=== PATIENT | male | born 1990 | race Caucasian/White ===

== ENCOUNTER 2016-12-03 17:37 | Emergency (ER) | payer SELFPAY ==
[~2016-12-03] VITALS: Ht 172.7 cm; Wt 91.4 kg
[2016-12-03 17:40] VITALS: BP 156/86
--- NOTE | 2016-12-03 17:50 | NUR ---
PATIENT TO BED 12 AT THIS TIME.
--- NOTE | 2016-12-03 17:57 | NUR ---
26 M BIB SELF WITH C/O EPISTAXIS BOTH NARES S/P MECHANICAL FALL X TODAY;DENIES LOC; BLEEDING CONTROLLED; NO DEVIATION; SKIN IS PINK/WARM/DRY; AOX4 WITH EVEN AND STEADY GAIT; RR ARE EVEN AND UNLABORED; VSS; PATIENT POSITIONED FOR COMFORT; BED DOWN. ER MD ESTEVES EXAMINING PT. ALL NEEDS MET.
[2016-12-03 18:35] VITALS: BP 145/80
--- NOTE | 2016-12-03 18:35 | NUR ---
Patient discharged with v/s stable. Written and verbal after care instructions given and explained. Patient alert, oriented and verbalized understanding of instructions. Ambulatory with steady gait. All questions addressed prior to discharge. ID band removed. Patient advised to follow up with PMD. Rx of Afrin given. Patient educated on indication of medication including possible reaction and side effects. Opportunity to ask questions provided and answered.
== END 2016-12-03 18:35 | disposition home or self-care (01) ==
LOC: MED 17:37
DX: R04.0 Epistaxis (principal); F14.90 Cocaine use, unspecified, uncomplicated
CPT/HCPCS: 99282

== ENCOUNTER 2017-01-13 15:40 | Emergency (ER) | payer SELFPAY ==
[~2017-01-13] VITALS: Ht 172.7 cm; Wt 92.1 kg
[2017-01-13 15:52] VITALS: BP 123/87
--- NOTE | 2017-01-13 17:00 | NUR ---
Patient to bed 08.
--- NOTE | 2017-01-13 17:15 | NUR ---
26 M BIB SELF WITH C/O 10/ "PRESSURE" NON RADIATING CONSTANT RT TESTICULAR PAIN WITH SWELLING X 1 DAY; PT DENIES DYSURIA, PENILE DISCHARGE, RECENT FEVERS OR TRAUMA/INJURY; PT IS AOX4, RR ARE EVEN AND UNLABORED; PT POSITION TO COMFORT, BED DOWN. ER MD AWARE OF PT STATUS. NAD. ALL NEEDS MET AT THIS TIME.
--- NOTE | 2017-01-13 18:03 | NUR ---
DR. PIZANO EVALUATING PT AT BEDSIDE.
--- NOTE | 2017-01-13 18:04 | NUR ---
Dr. Richmond evaluating patient at bedside.
[2017-01-13] MEDS ORDERED: KETOROLAC 60 MG/2 ML VIAL IM ONE (18:10)
[2017-01-13] MEDS ORDERED: AZITHROMYCIN 250 MG TAB PO ONE (18:25)
[2017-01-13] MEDS ORDERED: cefTRIAXone 250 MG in LIDOCAINE 1% ***ER ONLY *** 0.9 ML IM ONE (18:25)
[2017-01-13 19:04] VITALS: BP 106/74
--- NOTE | 2017-01-13 19:04 | NUR ---
Patient discharged with v/s stable. Written and verbal after care instructions given and explained. Patient alert, oriented and verbalized understanding of instructions. Ambulatory with steady gait. All questions addressed prior to discharge. ID band removed. Patient advised to follow up with PMD. Rx of Motrin and NOrco given. Patient educated on indication of medication including possible reaction and side effects. Opportunity to ask questions provided and answered.
[2017-01-15 09:24] LABS: CHLAMYDIA TRACHOMATIS AMP DNA Negative (Negative)
--- NOTE | 2017-01-17 14:44 | NUR ---
ADDENDUM: LAB.RESULTS SHOWED POSITIVE N.GONORRHOEAE. REVIEWED BY DR. HOFFMAN. PRESCRIPTION OF DOXYCYCLINE 100MG. 1 TAB. PO TID #20. ATTEMPTED TO CALL PATIENT [phone]. NOT ACCEPTING ANY CALLS.
--- NOTE | 2017-01-17 14:56 | NUR ---
GIVEN REPORT COPY TO [facility],FROM INFECTION CONTROL TO REPORT TO [facility]
--- NOTE | 2017-01-17 15:10 | NUR ---
ADDENDUM: ATTEMPTED TO CALL PATIENT AGAIN,STILL NOT RECEIVING CALLS. [facility]/DR. HOFFMAN MADE AWARE
== END 2017-01-13 19:04 | disposition home or self-care (01) ==
LOC: MED 15:40
DX: N50.811 Right testicular pain (principal); F17.200 Nicotine dependence, unspecified, uncomplicated
CPT/HCPCS: 36415; 76870; 81002; 87491; 96372; 99285; J0696; J1885; J2001

== ENCOUNTER 2018-10-24 23:31 | Emergency (ER) | payer MEDICAID, OTHER ==
[~2018-10-24] VITALS: Ht 170.2 cm; Wt 81.6 kg
[2018-10-24 23:49] VITALS: BP 154/91
--- NOTE | 2018-10-24 23:49 | NUR ---
PT AMBULATED TO LOBBY.
--- NOTE | 2018-10-25 00:48 | NUR ---
PT TAKEN TO BED 6
--- NOTE | 2018-10-25 00:48 | NUR ---
28 Y/O MALE PRESENTS TO ED WITH C/O STEPPING ON X2 NAILS. TWO, 3MM PUNCTURE WOUNDS TO BOTTOM OF RIGHT FOOT. BLEEDING CONTROLLED. LAST TEATANUS SHOT 2017. PT STATES NO PAST MEDICAL HX. 10/24 PAIN. ER MD AWARE. POSITIONED IN BED FOR COMFROT. CONTINUE TO MONITOR.
--- NOTE | 2018-10-25 02:08 | NUR ---
ERMD AT BEDSIDE
--- NOTE | 2018-10-25 02:11 | NUR ---
EMT AT BEDSIDE CLEANSING RIGHT FOOT
[2018-10-25] MEDS: KETOROLAC 60 MG/2 ML VIAL IM ONE (02:16)
--- NOTE | 2018-10-25 02:16 | NUR ---
EMT AT BEDSIDE WRAPPING RIGHT FOOT WITH NONADHESIVE DRESSING AND GAUZE
--- NOTE | 2018-10-25 02:40 | NUR ---
Patient discharged with v/s stable. Written and verbal after care instructions given and explained. Patient alert, oriented and verbalized understanding of instructions. Pt instructed to keep area clean and dry. Ambulatory with steady gait. All questions addressed prior to discharge. ID band removed. Rx of MOTRIN was given. Patient educated on indication of medication including possible reaction and side effects. Opportunity to ask questions provided and answered.
[2018-10-25 02:42] VITALS: BP 154/91
== END 2018-10-25 02:40 | disposition home or self-care (01) ==
LOC: MED 23:31
DX: S91.331A Puncture wound without foreign body, right foot, initial encounter (principal); W45.0XXA Nail entering through skin, initial encounter; Y92.89 Other specified places as the place of occurrence of the external cause; Y93.89 Activity, other specified; Y99.8 Other external cause status
CPT/HCPCS: 96372; 99283; J1885

== ENCOUNTER 2018-11-18 15:49 | Emergency (ER) | payer OTHER ==
[~2018-11-18] VITALS: Ht 175.3 cm; Wt 99.0 kg
[2018-11-18 15:58] VITALS: BP 154/97
[2018-11-18 16:54] LABS: BASOPHILS # (AUTO) 0.1 K/uL (0.00-0.22); BASOPHILS % (AUTO) 0.6 % (0.0-2.0); EOSINOPHILS # (AUTO) 0.1 K/uL (0-0.4); EOSINOPHILS % (AUTO) 1.2 % (0.0-4.0); HEMATOCRIT 47.7 % (36-52); HEMOGLOBIN 16.2 g/dL (12.0-18.0); LYMPHOCYTES # (AUTO) 2.1 K/uL (2.0-11.5); LYMPHOCYTES % (AUTO) 25.3 % (20.5-51.1); MEAN CORPUSCULAR HEMOGLOBIN 30 pg (27-31); MEAN CORPUSCULAR HGB CONC 34 g/dL (33-37); MEAN CORPUSCULAR VOLUME 89.5 fL (80-94); MONOCYTES # (AUTO) 0.8 K/uL (0.8-1.0); MONOCYTES % (AUTO) 10.1 % (1.7-9.3); NEUTROPHILS # (AUTO) 5.1 K/uL (1.8-7.7); NEUTROPHILS % (AUTO) 62.8 % (42.2-75.2); PLATELET COUNT (AUTO) 286 K/uL (140-450); RED BLOOD CELL COUNT(AUTO) 5.33 MIL/uL (4.20-6.10); RED CELL DISTRIBUTION WIDTH 13.3 % (11.6-13.7); WHITE BLOOD COUNT (AUTO) 8.2 K/uL (4.8-10.8)
[2018-11-18 16:56] LABS: APPEARANCE,URINE CLEAR (CLEAR); BILIRUBIN,URINE NEGATIVE (NEGATIVE); BLOOD, URINE NEGATIVE (NEGATIVE); LEUKOCYTE ESTERASE ,URINE NEGATIVE (NEGATIVE); NITRITE, URINE NEGATIVE (NEGATIVE); PH,URINE 5.5 (5.0-9.0); UGLUCOSE NEGATIVE (NEGATIVE)
[2018-11-18 17:01] LABS: ANION GAP 12.6 (8-16); CARBON DIOXIDE 28.1 mmol/L (21-32); CHLORIDE 104 mmol/L (98-107); CREATININE 1.2 mg/dL (0.7-1.3); GFR ARICAN-AMERICAN 92 mL/min (>90); GLUCOSE 91 mg/dL (74-106); POTASSIUM 3.7 mmol/L (3.5-5.1); SODIUM SERUM 141 mmol/L (136-145); UREA NITROGEN, BLOOD 19 mg/dL (7-18)
[2018-11-18 17:03] LABS: BARBITURATE, URINE NEG. ng/ml (NEG <=200); BENZODIAZEPINE, URINE NEG. ng/mL (NEG <=200); CANNABINOID, URINE POS. ng/mL (NEG <=50); COCAINE, URINE NEG. ng/mL (NEG <=300); OPIATE, URINE NEG. ng/mL (NEG <=2000); PHENCYCLIDINE SCREEN,URINE NEG. ng/mL (NEG <=25)
[2018-11-18 17:15] LABS: COLOR,URINE AMBER (YELLOW)
[2018-11-18 17:15] LABS: ALBUMIN 4.2 g/dL (3.4-5.0); ASPARTATE AMINOTRANSFERASE 45 U/L (15-37); SALICYLATE < 2.8 mg/dL (2.8-20.0); THYROID STIMULATING HORMONE 2.02 uIU/mL (0.34-3.74)
[2018-11-18 17:45] VITALS: BP 140/67
== END 2018-11-18 17:44 | disposition home or self-care (01) ==
LOC: MED 15:49
DX: Z02.89 Encounter for other administrative examinations (principal); F12.10 Cannabis abuse, uncomplicated; F15.10 Other stimulant abuse, uncomplicated; F90.9 Attention-deficit hyperactivity disorder, unspecified type
CPT/HCPCS: 36415; 80053; 80305; 81003; 84439; 84443; 85025; 99283; G0480; G0482

== ENCOUNTER 2018-11-21 11:34 | Emergency (ER) | payer OTHER ==
[~2018-11-21] VITALS: Ht 172.7 cm; Wt 76.7 kg
--- NOTE | 2018-11-21 11:39 | NUR ---
Kath edwards in ED - 11/21/18 at 1143 by MMTHEM Patient ambulated to bed 7. RN evaluating patient at bedside.
[2018-11-21 11:41] VITALS: BP 140/92
--- NOTE | 2018-11-21 11:48 | NUR ---
pt coming in for medical clearance paperwork to be filled out, no symptoms or complaints at this time.
[2018-11-21 13:01] VITALS: BP 140/92
--- NOTE | 2018-11-21 13:01 | NUR ---
Patient discharged with v/s stable. Written and verbal after care instructions given and explained. Patient verbalized understanding. Ambulatory with steady gait. All questions addressed prior to discharge. Advised to follow up with PMD.
== END 2018-11-21 13:01 | disposition home or self-care (01) ==
LOC: MED 11:34
DX: F15.10 Other stimulant abuse, uncomplicated (principal); F14.10 Cocaine abuse, uncomplicated; F10.10 Alcohol abuse, uncomplicated; F17.200 Nicotine dependence, unspecified, uncomplicated
CPT/HCPCS: 99281

== ENCOUNTER 2019-07-20 23:59 | Emergency (ER) | payer OTHER ==
[~2019-07-20] VITALS: Ht 175.3 cm; Wt 102.3 kg
[2019-07-21 00:05] VITALS: BP 133/97
[2019-07-21 00:40] VITALS: BP 133/97
== END 2019-07-21 00:40 | disposition home or self-care (01) ==
LOC: MED 23:59
DX: L02.415 Cutaneous abscess of right lower limb (principal); F15.10 Other stimulant abuse, uncomplicated; F12.90 Cannabis use, unspecified, uncomplicated
CPT/HCPCS: 99283

== ENCOUNTER 2020-06-15 19:39 | Emergency (ER) | payer OTHER ==
[~2020-06-15] VITALS: Ht 172.7 cm; Wt 98.4 kg
[2020-06-15 19:43] VITALS: BP 135/92
--- NOTE | 2020-06-15 19:45 | NUR ---
TO LOBBY A/W BED AMBULATORY
[2020-06-15] MEDS ORDERED: NACL 0.9% 1,000 ML IV ONE (19:55)
[2020-06-15] MEDS ORDERED: KETOROLAC 30 MG/ML VIAL IVP ONE (19:55)
[2020-06-15] MEDS ORDERED: ONDANSETRON 4 MG/2 ML VIAL IVP ONE (19:55)
--- NOTE | 2020-06-15 19:58 | NUR ---
PT TAKEN TO BED 6
--- NOTE | 2020-06-15 20:02 | NUR ---
29 Y/O MALE PRESENTED TO ED C/O LEFT FLANK PAIN X 1 WEEK . PT DESCRIBES PAIN SHARP AND CONSTANT W/ NO RELIEF. PT DENIES TAKING ANY MEDICATION FOR PAIN. PT DENIES ANY DYSURIA , HEMATURIA , FEVER, BODY ACHES OR CHILLS. PT C/O OF LT FLANK TENDERNESS UPON PALPATION BUT DENIES ANY ABDOMINAL PAIN. PT RESTING IN BED, LOCKED AND IN LOWEST POSITION, HOB ELEVATED, SIDE RAIL X 2 FOR PT SAFETY. VSS. NO ACUTE DISTRESS NOTED. PMH: DENIES NKA
--- NOTE | 2020-06-15 20:02 | NUR ---
Dr. Richmond examining patient.
--- NOTE | 2020-06-15 20:20 | NUR ---
PT C/O OF BURNING SENSATION IN RT FOREARM IV - PER PT REQUEST INSERTED NEW IV IN LEFT AC 20G. PT STATES NO BURNING OR PAIN NOTED IN THIS IV SITE.
[2020-06-15 20:23] LABS: BASOPHILS % (AUTO) 0.2 % (0.0-2.0); EOSINOPHILS # (AUTO) 0.2 K/uL (0-0.4); HEMOGLOBIN 17.6 g/dL (12.0-18.0); WHITE BLOOD COUNT (AUTO) 12.8 K/uL (4.8-10.8)
[2020-06-15 20:25] LABS: APPEARANCE,URINE CLEAR (CLEAR); BILIRUBIN,URINE 1+ (NEGATIVE); BLOOD, URINE 3+ (NEGATIVE); COLOR,URINE YELLOW (YELLOW); LEUKOCYTE ESTERASE ,URINE NEGATIVE (NEGATIVE); NITRITE, URINE NEGATIVE (NEGATIVE); PH,URINE 5.5 (5.0-9.0); UGLUCOSE NEGATIVE (NEGATIVE)
--- NOTE | 2020-06-15 20:25 | NUR ---
PT TAKEN TO CT VIA OSMEL
[2020-06-15 20:30] LABS: EOSINOPHILS % (AUTO) 1.6 % (0.0-4.0); HEMATOCRIT 51.7 % (36-52); LYMPHOCYTES # (AUTO) 1.1 K/uL (2.0-11.5); LYMPHOCYTES % (AUTO) 8.5 % (20.5-51.1); MEAN CORPUSCULAR HEMOGLOBIN 31 pg (27-31); MEAN CORPUSCULAR HGB CONC 34 g/dL (33-37); MEAN CORPUSCULAR VOLUME 90.3 fL (80-94); MONOCYTES # (AUTO) 0.7 K/uL (0.8-1.0); MONOCYTES % (AUTO) 5.8 % (1.7-9.3); NEUTROPHILS # (AUTO) 10.7 K/uL (1.8-7.7); NEUTROPHILS % (AUTO) 83.9 % (42.2-75.2); PLATELET COUNT (AUTO) 292 K/uL (140-450); RED BLOOD CELL COUNT(AUTO) 5.73 MIL/uL (4.20-6.10); RED CELL DISTRIBUTION WIDTH 13.5 % (11.6-13.7)
[2020-06-15 20:39] LABS: RBC,URINE TOO NUMEROUS TO COUN /HPF (0-5); WBC,URINE NONE SEEN /HPF (0-5)
[2020-06-15 20:40] LABS: CALCIUM OXALATE CRYSTALS,UR 0-10 /HPF (None Seen)
[2020-06-15 20:42] LABS: ALBUMIN 3.7 g/dL (3.4-5.0); ANION GAP 9.9 (8-16); CREATININE 1.2 mg/dL (0.6-1.3); POTASSIUM 3.9 mmol/L (3.5-5.1); TOTAL BILIRUBIN 0.7 mg/dL (0.0-1.0)
[2020-06-15] MEDS ORDERED: TAMS0.4C96 PO (20:58)
[2020-06-15] MEDS ORDERED: ACET-8386 PO (20:58)
[2020-06-15] MEDS ORDERED: IBUP-2213 PO (20:58)
[2020-06-15] MEDS ORDERED: ONDA8TAB87 PO (20:58)
--- NOTE | 2020-06-15 21:15 | NUR ---
20G IV IN RT FOREARM removed, catheter intact and site benign. Applied folded 4x4 gauze and tape to stop bleeding. 20G IV IN LEFT AC removed, catheter intact and site benign. Applied folded 4x4 gauze and tape to stop bleeding.
[2020-06-15 21:17] VITALS: BP 130/89
--- NOTE | 2020-06-15 21:17 | NUR ---
Patient discharged with v/s stable. Written and verbal after care instructions given and explained. Patient alert, oriented and verbalized understanding of instructions. Ambulatory with steady gait. All questions addressed prior to discharge. ID band removed. Patient advised to follow up with PMD. Rx of flomax, ibuprofen, norco and zofran given. Patient educated on indication of medication including possible reaction and side effects. Opportunity to ask questions provided and answered.
== END 2020-06-15 21:17 | disposition home or self-care (01) ==
LOC: MED 19:39
DX: N20.0 Calculus of kidney (principal); M54.9 Dorsalgia, unspecified
CPT/HCPCS: 36415; 74176; 80053; 81001; 83690; 85025; 96361; 96374; 96375; 99284; J1885; J2405; J7030

== ENCOUNTER 2020-10-05 21:00 | Emergency (ER) | payer OTHER ==
[~2020-10-05] VITALS: Ht 172.7 cm; Wt 103.4 kg
[~2020-10-05 21:00] MED LIST: ACET-8386 PO; IBUP-2213 PO; ONDA8TAB87 PO; TAMS0.4C96 PO
[2020-10-05 21:08] VITALS: BP 123/83
[2020-10-05] MEDS ORDERED: DEXAMETHASONE 4 MG/ML VIAL IM ONE (21:50)
[2020-10-05] MEDS ORDERED: KETOROLAC 30 MG/ML VIAL IM ONE (21:50)
[2020-10-05] MEDS ORDERED: AMOX500T3 PO (21:52)
--- NOTE | 2020-10-05 22:30 | NUR ---
d/c with VSS. d/c education given. opportunity to ask questions given and answered. rx of amoxicillin.
== END 2020-10-05 22:30 | disposition home or self-care (01) ==
LOC: MED 21:00
DX: J03.90 Acute tonsillitis, unspecified (principal); Z20.822 Contact with and (suspected) exposure to COVID-19; I10 Essential (primary) hypertension; Z79.899 Other long term (current) drug therapy
CPT/HCPCS: 96372; 99284; J1100; J1885; U0003

== ENCOUNTER 2021-04-15 16:31 | Emergency (ER) | payer OTHER ==
[~2021-04-15] VITALS: Ht 175.3 cm; Wt 93.0 kg
[~2021-04-15 16:31] MED LIST changes: +AMOX500T3 PO
--- NOTE | 2021-04-15 16:36 | NUR ---
PT W/C ASSISTED TO LOBBY PER ERMD.
[2021-04-15 16:40] VITALS: BP 140/92
--- NOTE | 2021-04-15 16:47 | NUR ---
30 Y/O MALE BIBA FROM HOME C/O N/V, AND ABD PAIN 10/ S/P EATING "BAD GRAPES" AND USING METH. DENIES FEVER/CHILLS. PMH: HTN NKA
[2021-04-15] MEDS ORDERED: NACL 0.9% 1,000 ML IV ONE (17:25)
[2021-04-15] MEDS ORDERED: ONDANSETRON 4 MG/2 ML VIAL IVP ONE (17:25)
[2021-04-15] MEDS ORDERED: MORPHINE SULFATE 4 MG/ML SYR IVP ONE (17:25)
--- NOTE | 2021-04-15 18:08 | NUR ---
ASSUMED CARE OF PT AT THIS TIME
[2021-04-15 19:01] LABS: BASOPHILS % (AUTO) 0.2 % (0.0-2.0); EOSINOPHILS # (AUTO) 0.1 K/uL (0-0.4); EOSINOPHILS % (AUTO) 0.8 % (0.0-4.0); HEMATOCRIT 46.7 % (36-52); HEMOGLOBIN 16.1 g/dL (12.0-18.0); LYMPHOCYTES # (AUTO) 0.6 K/uL (2.0-11.5); LYMPHOCYTES % (AUTO) 4.2 % (20.5-51.1); MEAN CORPUSCULAR HEMOGLOBIN 31 pg (27-31); MEAN CORPUSCULAR HGB CONC 34 g/dL (33-37); MEAN CORPUSCULAR VOLUME 89.1 fL (80-94); MONOCYTES # (AUTO) 0.5 K/uL (0.8-1.0); MONOCYTES % (AUTO) 3.4 % (1.7-9.3); NEUTROPHILS # (AUTO) 12.3 K/uL (1.8-7.7); NEUTROPHILS % (AUTO) 91.4 % (42.2-75.2); PLATELET COUNT (AUTO) 244 K/uL (140-450); RED BLOOD CELL COUNT(AUTO) 5.25 MIL/uL (4.20-6.10); WHITE BLOOD COUNT (AUTO) 13.4 K/uL (4.8-10.8)
[2021-04-15 19:15] LABS: ALBUMIN 3.6 g/dL (3.4-5.0); ANION GAP 10.8 (8-16); CARBON DIOXIDE 26.9 mmol/L (21-32); CREATININE 1.2 mg/dL (0.6-1.3); POTASSIUM 3.7 mmol/L (3.5-5.1)
--- NOTE | 2021-04-15 19:22 | NUR ---
Pt report given to Wilber MANNING. Transfer of care at this time.
--- NOTE | 2021-04-15 19:40 | NUR ---
Assumed patient care, here for abdominal pain/nausea and vomiting, awaiting for disposition. On assesment, pt denies nausea and abd pain at this time.
--- NOTE | 2021-04-15 20:45 | NUR ---
Patient cleared for DC, Vs rechecked and stable. VS 132/75, hr 89bpm, rr-18, temp 98.7. IV line discontinued. EXited ED with steady gait.
== END 2021-04-15 20:45 | disposition home or self-care (01) ==
LOC: MED 16:31
DX: A05.9 Bacterial foodborne intoxication, unspecified (principal); I10 Essential (primary) hypertension; Z79.899 Other long term (current) drug therapy
CPT/HCPCS: 36415; 80053; 83690; 85025; 96361; 96374; 96375; 99284; J2270; J2405; J7030

== ENCOUNTER 2022-03-09 21:10 | Emergency (ER) | payer OTHER ==
[~2022-03-09] VITALS: Ht 172.7 cm; Wt 119.3 kg
[~2022-03-09 21:10] MED LIST changes: -ACET-8386 PO; +ACET-8905 PO
[2022-03-09 21:23] VITALS: BP 174/100
--- NOTE | 2022-03-09 21:25 | NUR ---
to bed ambulatory
--- NOTE | 2022-03-09 21:33 | NUR ---
Patient being evaluated by physician at bedside.
--- NOTE | 2022-03-09 21:35 | NUR ---
Patient resting in bed, A/Ox4, chest rise and fall symmetrical, no s/s of distress.
[2022-03-09] MEDS ORDERED: ALUMINUM HYD/MAG/SIMETHICONE 30 ML UDC ONE (21:44)
[2022-03-09] MEDS ORDERED: DICYCLOMINE HCL LIQUID 10 MG/5 ML UDC ONE (21:45)
[2022-03-09] MEDS ORDERED: OMEP40EC24 PO (21:47)
[2022-03-09] MEDS ORDERED: IBUP-2213 PO (21:47)
[2022-03-09] MEDS: DICYCLOMINE HCL LIQUID 20 MG, ALUMINUM HYD/MAG/SIMETHICONE 30 ML, LIDOCAINE VISCOUS 2% ... PO ONE ×3 (21:49)
[2022-03-09 22:00] VITALS: BP 132/85
== END 2022-03-09 22:00 | disposition home or self-care (01) ==
LOC: MED 21:10
DX: R10.12 Left upper quadrant pain (principal); R10.13 Epigastric pain; I10 Essential (primary) hypertension; Z79.899 Other long term (current) drug therapy
CPT/HCPCS: 93005; 99283

== ENCOUNTER 2023-10-08 06:47 | Emergency (ER) | payer OTHER ==
[~2023-10-08] VITALS: Ht 167.6 cm; Wt 104.3 kg
[~2023-10-08 06:47] MED LIST changes: +OMEP40EC24 PO
[2023-10-08 06:53] VITALS: BP 136/89; PULSE 92; RESP 14; TEMP 97.6; O2SAT 99
[2023-10-08] MEDS ORDERED: TETRACAINE HCL/PF 0.5% OPTH 4 ML BTL ONE (07:07)
[2023-10-08] MEDS ORDERED: FLUORESCEIN OPTH STRIP 1 MG ONE (07:07)
[2023-10-08] MEDS: FLUORESCEIN OPTH STRIP 1 MG OP ONE (07:09)
[2023-10-08] MEDS: TETRACAINE HCL/PF 0.5% OPTH 4 ML BTL OP ONE (07:09)
[2023-10-08] MEDS ORDERED: ERYT5OIN51 LEFT EYE (07:25)
[2023-10-08 07:31] VITALS: BP 136/89; PULSE 92; RESP 14; TEMP 97.6; O2SAT 99
== END 2023-10-08 07:31 | disposition home or self-care (01) ==
LOC: MED 06:47
DX: H10.9 Unspecified conjunctivitis (principal); I10 Essential (primary) hypertension; Z79.899 Other long term (current) drug therapy
CPT/HCPCS: 99283